=== PATIENT | female | born 1980 | race African-American/Black ===

== ENCOUNTER 2019-11-16 15:21 | Outpatient (CLI) | payer BC, OTHER ==
[2019-11-16 16:18] LABS: Hemoglobin 13.6 g/dL (12.0-16.0); Mean Corpuscular Hemoglobin 28.2 pg (27.0-31.0); Mean Corpuscular Volume 80.5 fL (78.0-98.0); Mean Platelet Volume 7.3 fL (7.4-10.4); Platelet Count 261 thou/uL (130-400); RBC Distribution Width 12.3 % (11.5-14.5); Red Blood Cell (RBC) Count 4.84 mill/uL (4.20-5.40)
[2019-11-16 16:31] LABS: BHCG - Serum Negative (NEGATIVE); Pregs Control Background? CLEAR/WHITE (CLR/WHITE); Pregs Control Bar Appear? YES (CONTROL BAR)
[2019-11-16 16:45] LABS: Anion Gap 11 mmol/L (10-20); BUN (Urea Nitrogen) 13 mg/dL (7.0-18.7); Calc. Creatinine Clearance 0 mL/min (70-130); Calcium 9.2 mg/dL (7.8-10.44); Carbon Dioxide 24 mmol/L (22-29); Chloride 106 mmol/L (98-107); Estimated GFR-MDRD 83; Glucose 90 mg/dL (70-105); Potassium 4.1 mmol/L (3.5-5.1); Sodium 137 mmol/L (136-145)
[2019-11-17 11:18] LABS: SARS-CoV-2 MS2 Positive; SARS-CoV-2 N Gene Negative; SARS-CoV-2 S Gene Negative; SARS-CoV-2 orf1ab Negative
== END 2019-11-16 15:22 | disposition home or self-care (01) ==
LOC: LABBT 15:21
PROVIDERS: ATTEND Specialist
DX: Z01.812 Encounter for preprocedural laboratory examination (principal); Z11.59 Encounter for screening for other viral diseases; R19.09 Other intra-abdominal and pelvic swelling, mass and lump; N80.9 Endometriosis, unspecified
CPT/HCPCS: 80048; 84703; 85027; 87635; U0003

== ENCOUNTER 2019-11-21 07:52 | Day surgery (SDC) | payer BC, OTHER ==
[2019-11-16 15:41] VITALS: BMI 45.5
[2019-11-21] MEDS ORDERED: Ketorolac Tromethamine 30 MG/ML VIAL ONE (08:10)
[2019-11-21] MEDS ORDERED: Acetaminophen 500 MG TAB ONE (08:10)
[2019-11-21] MEDS ORDERED: Lidocaine 1% w/Epinephrine 1:100K 20 ML VIAL ONE (09:10)
[2019-11-21] MEDS ORDERED: Bupivacaine 0.25% HCL 30 ML VIAL ONE (09:10)
[2019-11-21] MEDS ORDERED: Ondansetron PF 4 MG/2 ML Vial ONE (09:12)
[2019-11-21] MEDS ORDERED: PROPOFOL 200 MG/20 ML VIAL ONE (09:12)
[2019-11-21] MEDS ORDERED: Glycopyrrolate 0.2 MG/ML 5 ML SYRINGE ONE (09:12)
[2019-11-21] MEDS ORDERED: Lidocaine 1% PF 5 ML VIAL ONE (09:12)
[2019-11-21] MEDS ORDERED: Dexamethasone 20 MG/5 ML VIAL ONE (09:12)
[2019-11-21] MEDS ORDERED: Fentanyl 250 MCG/5 ML VIAL ONE (09:12)
[2019-11-21] MEDS ORDERED: Rocuronium Bromide 10 MG/ML (10ML VIAL) ONE (09:12)
--- NOTE | 2019-11-21 11:00 | OP ---
DATE OF PROCEDURE: 11/21/2019 PREOPERATIVE DIAGNOSES: A 3-cm protruding umbilical mass, history of umbilical hernia repair. POSTOPERATIVE DIAGNOSES: A 3-cm protruding umbilical mass, history of umbilical hernia repair. PROCEDURE PERFORMED: Excision of umbilical mass, umbilectomy, layered closure. ANESTHESIA: General endotracheal. INDICATIONS: The patient is a 39-year-old obese black female. She has a history of umbilical hernia repair with mesh several years in the past. She subsequently developed a mass protruding from her umbilicus. This has recently been noted to enlarge and even bleed a little bit with her menstrual cycle and this is presumed to be an endometrioma. She presents at this time for excision. Due to the size of the mass relative to her umbilicus, I do not believe there is any chance of umbilical preservation. DESCRIPTION OF OPERATION: Informed consent was obtained. The patient was taken to the operating room, where general endotracheal anesthesia was obtained with the patient in supine position. Head was prepped with ChloraPrep and draped in sterile fashion. Local anesthetic was infiltrated using a mixture of 1% lidocaine with epinephrine and 0.25% Marcaine. Elliptical incision was created so as to include the protruding mass and the entire umbilicus. Dissection was carried through skin and subcutaneous tissue using electrocautery. As I dissected down and recognized what was left of the umbilical stalk, there did not appear to be any tumor or mass at that level. It did not seem that there was any abnormal tissue that extended down to the fascia. The umbilical stalk was therefore amputated at its base and the specimen was submitted for pathology. Meticulous hemostasis was obtained within the wound. It was closed in layers using 3-0 Monocryl to close the deep layer and the space, another 3-0 Monocryl layer to close more superficially on the dermis. The skin edges were approximated with 4-0 Monocryl subcuticular suture. Dermabond was placed externally. There were no complications. The patient tolerated the procedure well, was taken to the recovery room in stable condition. Job ID: [id number]
== END 2019-11-21 12:55 | disposition home or self-care (01) ==
LOC: SDC 07:52
PROVIDERS: ATTEND Specialist
PROC: 0WBFXZZ Excision of Abdominal Wall, External Approach (ICD-10-PCS; principal; 2019-11-21)
DX: N80.8 Other endometriosis (principal); E66.9 Obesity, unspecified; Z68.42 Body mass index [BMI] 45.0-49.9, adult
CPT/HCPCS: 88305; J0690; J1100; J1885; J2001; J2405; J2704; J3010; S0020